=== PATIENT | male | born 1990 | race Caucasian/White ===

== ENCOUNTER 2020-09-26 13:05 | Emergency (ER) | payer OTHER, SELFPAY ==
[2020-09-26 13:06] VITALS: BP 120/104; PULSE 93; RESP 22; TEMP 36.4; O2SAT 100; BMI 23.4
--- NOTE | 2020-09-26 13:09 | EKG12_ITS ---
Test Reason : DYSRHYTHMIA Blood Pressure : / mmHG Vent. Rate : 085 BPM Atrial Rate : 085 BPM P-R Int : 144 ms QRS Dur : 096 ms QT Int : 370 ms P-R-T Axes : 056 065 018 degrees QTc Int : 440 ms Normal sinus rhythm Normal ECG Confirmed by FRANKLIN SALAS, MINNIE ([id number]), design editor YOLIS SERRANO ([id number]) on 10/02/2020 9:57:40 A M Referred By: MR Confirmed By:KOKI REID MD
[2020-09-26 13:28] LABS: Absolute Lymphocyte Count 0.71 X10^3/uL (0.83-4.51); Absolute Neutrophil Count 10.1 X10^3/uL (2.0-7.7); Basophil# 0.03 X10^3/uL; Basophil% 0.3 % (0-1); Eosinophil# 0.01 X10^3/uL; Eosinophils% 0.1 % (0-5); Hemoglobin 15.8 g/dL (13.0-16.5); Lymphocyte # 0.71 X10^3/ul (4.0); Lymphocyte % 6.1 % (19-41); Mean Corp Hgb Conc 35.9 g/dL (32-36); Mean Corpuscular Hgb 31.3 pg (27.0-32.0); Mean Corpuscular Volume 87.3 fL (80-94); Monocyte# 0.72 X10^3/uL; Monocyte% 6.2 % (0-10); NRBC Flagged by Analyzer 0 % (0-5); Neutrophil # 10.12 X10^3/uL (2.7-7.7); Platelet Count 259 K/mm3 (150-450); RBC Distribution Width CV 12.5 % (11.6-14.6); RBC Distribution Width SD 39.8 fl (35.1-43.9); Red Blood Count 5.04 M/mm3 (4.6-6.2); White Blood Count 11.6 K/mm3 (4.4-11.0)
[2020-09-26 13:34] VITALS: BP 134/76; PULSE 92; RESP 18; O2SAT 100
[2020-09-26 13:36] LABS: Allen Test Positive; Base Excess 1 mmol/L (-2 to +2); Bicarbonate 23.1 mmol/L (22-26); Blood Gas Specimen Type ART; FI02 100; O2 Delivery Device NRB; PO2 328 mmHG (75-100); SITE R Radial; SO2 100 % (95-99); Total Carbon Dioxide 24 mmol/L; pCO2 27.1 mmHg (35-45); pH 7.54 (7.35-7.45)
[2020-09-26 13:39] LABS: Carboxyhemoglobin Frac (CO) 43.7 % (0.0-1.5)
--- NOTE | 2020-09-26 13:43 | CM.ED ---
SOCIAL WORK Patient to be transferred to [facility]. Patient attempted suicide by CO2 poisoning. Patient gave permission for staff to speak with , Delma Gonzalez. Call to patient's to update on transfer to [facility]. Much emotional support provided to . states good support from family. Plan: Transfer Sheldon Mariscal, HEATER MECHANIC, TANK TRUCK MECHANIC
--- NOTE | 2020-09-26 13:48 | ED.DCSUM_ITS ---
History of Present Illness Chief Complaint: Suicidal Narrative: Patient presenting after a suicide attempt. Patient apparently sat in a running car in a closed garage since 9 AM, and then texted a family member at the last minute. Patient was somnolent for EMS, but protecting his airway. Patient denies any other coingestants. He does report that he is suicidal. EMS reported that his finger cooximetry said his carbon monoxide level was greater than 40. Past Medical History - Allergies and Home Meds Allergies/Adverse Reactions: Allergies No Known Allergies Allergy (Verified 09/26/20 13:22) Primary Care Physician: Nancy Erazo RECEIVING ROOM CLERK, RECEIVING ROOM CLERK-C [Primary Care Provider] - Prior records reviewed: Yes Past Medical History: - - Past history of depression Smoking Status: Never smoker Review of Systems ROS: Unable to Obtain Physical Exam Vital Signs/Narrative: Vital Signs Temp Pulse Resp BP Pulse Ox 09/26/20 13:34 92 18 134/76 H 100 09/26/20 13:06 97.5 F L 93 22 H 120/104 H 100 Inital Vital Signs reviewed: Yes General: Well nourished, Well developed, - - Patient is protecting his airway, not acutely distressed. He is somewhat somnolent but oriented. GCS is 14. Head: Normocephalic, Atraumatic Eyes: Perrl, EOMI ENT: Moist mucous membranes, No rhinorrhea Neck: Supple, Nontender Cardiovascular: Regular rate, Regular rhythm, No murmurs Respiratory: No distress, CTA bilaterally, Chest nontender Back: Nontender, Normal Inspection Extremities: Nontender, No edema Skin: Normal color, No rash Neurological: Alert, Oriented x3, Cranial nerves II-XII grossly intact, Normal Strength, Normal Sensation Psychological: Depressed Diagnostic/Tx/Re-eval - Medical Decision Making Patient presented secondary to an intentional carbon monoxide poisoning. Preparations were made for potential intubation should the patient had not been protecting his airway or being combative. Patient was actually cooperative and was protecting his airway. He was placed on 100% oxygen by nonrebreather. Blood gas does not show significant acidosis, actually shows the patient have a pH of 7.5. Patient's confirmed blood carbon monoxide level however was 43.7. This very clearly meets criteria for hyperbaric oxygen. I contacted [facility] as they have emergency hyperbarics. They did agree to accept the patient in transfer. [place] slip was filled out. Patient will be transferred by ALS, as there currently are no medevac flying today. - Critical Care Time Critical care time (excluding procedures): 30-74 minutes ED Disposition - Plan for ED Patient: Disposition: Acute Care Hospital - Other Diagnosis: Carbon monoxide poisoning, suicide attempt
[2020-09-26 13:49] LABS: ALB/GLOB Ratio 1.3 RATIO (0.9-2.4); AST(SGOT) 33 U/L (15-37); Alanine Aminotransfer ALT/SGPT 61 U/L (16-61); Albumin, Serum 4.7 g/dL (3.2-5.0); Alkaline Phosphatase 78 U/L (45-117); Anion Gap 10 (5-15); BUN 15 mg/dL (7-18); BUN/Creat Ratio 14.4 RATIO (10-20); Calcium,Total 9.3 mg/dL (8.5-10.1); Chloride 104 mmol/L (98-107); Creatinine, Serum 1.04 mg/dL (0.70-1.30); EST Glomerular Filtration Rate 88 mL/min (>60); Est Glom Filt Rate - Afr Amer 106 mL/min (>60); Estimated Creatinine Clearance 111.92 ml/min; Globulin 3.5 g/dL (2.2-4.2); Glucose 117 mg/dL (74-106); Potassium 3.7 mmol/L (3.5-5.1); Protein, Total 8.2 g/dL (6.4-8.2); Sodium Level 138 mmol/L (136-145)
[2020-09-26 13:53] VITALS: BP 154/77; PULSE 92; RESP 20; O2SAT 100
[2020-09-26 13:57] LABS: Lactic Acid 5.5 mmol/L (0.4-1.9)
[2020-09-26 14:02] LABS: Alcohol, Blood (Medical)-Serum < 3.0 mg/dL
[2020-09-26 14:03] LABS: International Normalized Ratio 1.1; Prothrombin Time (Protime)PT. 13.3 SECONDS (11.7-14.9)
[2020-09-26 14:04] LABS: Partial Thromboplast Time 23.9 Seconds (24.1-36.2)
[2020-09-26 14:06] VITALS: PULSE 92
[2020-09-26 14:16] LABS: Acetaminophen (Tylenol) Level < 2.0 ug/mL (10.0-30.0); Salicylate < 1.7 mg/dL (2.8-20.0)
[2020-09-26 15:00] VITALS: PULSE 93; RESP 18; O2SAT 100
[2020-09-26 17:22] LABS: Reflex Lactate? Y
--- NOTE | 2020-09-30 08:29 | CPS ---
Dr. Dotson made aware of critical PaO2 values on pt. (PaO2 = 328mmHg). Also, there was not enough blood obtained to run second ABG.
== END 2020-09-26 15:07 | disposition short-term general hospital (02) ==
PROVIDERS: Emergency Provider Emergency Medicine; PCP Nurse Practitioner Family
DX: T58.02XA Toxic effect of carbon monoxide from motor vehicle exhaust, intentional self-harm, initial encounter (principal); Y92.9 Unspecified place or not applicable
CPT/HCPCS: 36600; 80053; 80307; 80320; 80329; 82375; 82803; 83605; 84484; 85025; 85610; 85730; 87426; 93005; 99285; J7030; A4216; G0480